=== PATIENT | female | born 1955 | race Caucasian/White ===

== ENCOUNTER 2018-04-29 08:04 | Inpatient (IN) ==
[2018-04-29] MEDS ORDERED: Chlorhexidine 4% Topical 120 APPLIC/120 ML Bottle TOPICAL SCH (08:30)
[2018-04-29] MEDS ORDERED: Chlorhexidine Gluconate 2% 1 Pack (2 Cloths) TOPICAL ONE (08:30)
[2018-04-29] MEDS ORDERED: Metoprolol Tartrate 25 MG Tablet PO ONE (08:30)
[2018-04-29] MEDS ORDERED: Sodium Chlor 0.9% Inj 500 ML IV.CONT ONE (08:30)
[2018-04-29] MEDS ORDERED: TRANEXAMIC ACID IV.SIG SCH ×2 (09:00→12:00)
[2018-04-29] MEDS ORDERED: SODIUM CHLOR 0.9% IV.SIG SCH ×2 (09:00→12:00)
[2018-04-29] MEDS ORDERED: Sodium Chlor 0.9% Inj 40 ML, Bupivacaine Liposo PF 1.3% Inj 20 ML P-ARTICULR SCH ×2 (09:00)
[2018-04-29] MEDS ORDERED: fentaNYL Citrate Inj 100 MCG/2 ML Ampul ONE (09:56)
[2018-04-29] MEDS ORDERED: Propofol Inj 500 MG/50 ML Vial ONE (09:56)
[2018-04-29] MEDS ORDERED: Famotidine PF Inj 20 MG/2 ML Vial ONE (09:57)
[2018-04-29] MEDS ORDERED: Ketamine Inj 50 MG/5 ML Syringe IV.PUSH ONE (10:05)
[2018-04-29] MEDS ORDERED: ceFAZolin 2 GM Premix Inj 2 GM/50 ML PIGGYBACK IV.SIG ONE (10:15)
[2018-04-29] MEDS ORDERED: Acetaminophen 500 MG Tablet PO PRN (10:26)
[2018-04-29] MEDS ORDERED: Pantoprazole Sodium 20 MG DR Tablet PO PRN (12:00)
--- NOTE | 2018-04-29 12:30 | P.OP ---
- Preoperative Diagnosis (1) Primary osteoarthritis of left hip - Postoperative Diagnosis (1) Primary osteoarthritis of left hip Date of procedure: 04/29/18 Procedure: Left total hip arthroplasty using [place] prosthesis. Anesthesia: local (Exparel), spinal Surgeon: Timmy Cat MD Quality Consultant: CRISTINA Johnson Estimated blood loss (mL): 350 Pathology: none sent Operation and Findings: Indications and Findings: This 62-year-old woman has a one year history of progressive left hip pain that has gotten to the point where she has an ambulation tolerance of about 10 minutes. She has stiffness in the joint with difficulty bearing full weight, groin pain, difficulty standing from a seated position and vice versa, difficulty ascending and descending stairs. She has not responded to conservative measures including anti-inflammatory agents, analgesics, intra-articular corticosteroids, physical therapy and ambulatory aids. Physical findings showed severe limitation of motion with tenderness on motion in the left hip. Radiographic findings showed loss of articular cartilage to [id number] with femoral head and acetabular osteophytes and subchondral cysts. Operative findings: There is severe osteoarthritis in the left hip with osteophytes and subchondral sclerosis. There was deformity of the femoral head with loss of arcuate articular cartilage to [id number]. Implants: The acetabular component was a 50 mm outer diameter Trident II cluster shell with a 36 mm inner diameter, 0 degree, X3 polyethylene liner. The femoral component was an Accolade II size 4 x 132 degrees. The femoral head was Biolox Delta size 36 mm outer diameter with -5 mm offset. The patient was brought to the clean air operating suite and a spinal anesthetic was administered. The patient was positioned into a lateral position with the operative hip up on a [employer] lateral positioner. The hip and lower extremity were prepped with alcohol, Hibiclens and ChloraPrep and draped in the usual manner with the hip draped free. Patient received prophylactic antibiotics preoperatively. The patient also received tranexamic acid preoperatively. An appropriate timeout procedure was carried out. An incision was made from the midportion of the greater trochanter proximally and posteriorly paralleling the fibers of the gluteus mike. The incision was deepened through subcutaneous tissues down to the fascia meaghan and gluteus fascia. The gluteus fascia was then split longitudinally in line with its fibers up to the upper portion of the fascia meaghan. With wound towels in place, the Charnley retractor was inserted. The sciatic nerve was identified and protected throughout the procedure. Dissection was then carried down to the interval between the gluteus minimus and the piriformis. A retractor was inserted. The piriformis and obturator conjoined tendon was released from the greater trochanter and reflected off the capsule. A capsulotomy was made longitudinally along the femoral neck to the base of the femoral neck and then curved distally along the posterior aspect of the greater trochanter. The hip was internally rotated. Further release of the external rotators was carried out exposing the hip. The hip was dislocated. The femoral neck was transected at the appropriate level using the oscillating saw placement of appropriate retractors. The femoral head was removed. Preparation of the femur was initiated with a box osteotome followed by a curet to identify the medullary canal. Broaching was then initiated with the size 0 broach and went in 1 size increments up to size 4. The broach handle was removed. The femoral neck was then trimmed with a calcar planar. Attention was then directed to the acetabulum. Soft tissues were debrided from the acetabulum. Retractors were placed about the acetabulum. Reaming was then initiated with the 45 millimeter reamer and went in 1-2 mm increments up to the 50 millimeter diameter reamer. A trial reduction with the 50 millimeter trial prosthesis was carried out. When this was deemed to be appropriate, the trial prosthesis was removed. The acetabulum was irrigated and cleaned. The actual prosthesis as noted above was impacted into place and seated appropriately. Drill holes were made and sounded. Appropriate sized screws were inserted to stabilize the acetabulum further. The liner as noted above was inserted into the acetabular shell and impacted into place. Osteophytes were trimmed from the acetabulum. Local anesthetic was administered throughout the area of the acetabulum and anterior aspect of the femur. The trial neck was placed on the broach for the above-noted prosthesis. The femoral head trial was placed onto the femoral neck . A trial reduction was carried out. Adjustment was made as needed. The stability, leg length and motion were excellent. There was no pistoning. The trial prosthesis was removed. The broach was removed. The femoral component was impacted into the medullary canal of the femur after irrigation and suctioning. When this was appropriately seated a trial reduction was again carried out with the trial prosthesis. There was no pistoning. The leg length was appropriate. The stability and motion were excellent. The trial prosthesis was then removed. After cleaning and drying the trunion of the femoral component, the above-noted femoral head was impacted onto the trunnion. The hip was reduced. The stability and mobility were again checked along with leg lengths as noted above. The hip was positioned appropriately and closure commenced after the remainder of the local anesthetic was injected throughout the hip. The external rotators and capsule were repaired with #1 Vicryl interrupted transosseous sutures with a Krakw technique to reattach the external rotators and capsule to the posterior aspect of the greater trochanter. The capsule itself on the superior aspect was closed with #1 Vicryl interrupted [id number] sutures. The sciatic nerve was inspected. The fascia meaghan and gluteus fascia were repaired with #1 Vicryl interrupted [id number] sutures. The subcutaneous tissues were closed with 2-0 Vicryl interrupted simple sutures with buried knots. The skin was closed with a continuous subcuticular closure of 4-0 Monocryl. The wound was then approximated with Dermabond Prineo. A silver impregnated dressing was applied to the hip. A knee immobilizer was applied to the leg. The patient was transferred from the operating room to the recovery room in satisfactory condition having tolerated the procedure well. Counts are correct. Specimens: None. Estimated blood loss: 350
[2018-04-29] MEDS ORDERED: Tranexamic Acid Inj 0 MG in Sodium Chlor 0.9% Inj 100 ML IV.SIG ONE (12:32)
[2018-04-29] MEDS ORDERED: Post-op Orders (for Pharmacy) OTHER STA (12:32)
[2018-04-29] MEDS ORDERED: Acetaminophen 325 MG Tablet PO PRN (12:32)
[2018-04-29] MEDS ORDERED: Zolpidem Tartrate 5 MG Tablet PO PRN (12:32)
[2018-04-29] MEDS ORDERED: Aluminum/Magnesium/Simethacone Susp 30 ML UDC PO PRN (12:32)
[2018-04-29] MEDS ORDERED: Morphine Inj 4 MG/ML Vial IV.PUSH PRN (12:32)
[2018-04-29] MEDS ORDERED: Bisacodyl 10 MG Supp RECTAL PRN (12:32)
--- NOTE | 2018-04-29 12:32 | P.DCO ---
- Physical Therapy Physical Therapy: Gait training Hip: Total hip, Protocol: Left, Posterior hip precautions, Progress to weight bearing Canvas Knee Splint: When in bed with 2 pillows between thighs Left Lower Extremity Weight Bearing: Weight bearing as tolerated Left Lower Extremity Range of Motion: Active ROM - Nursing Nursing: Dressing changes Dressing changes: Daily dressing change, Coverderm/Primapore Additional instructions: Do not remove Dermabond Prineo (the tape that is directly on the wound). Leave the Optifoam dressing in place for 7 days. After this, daily dressing changes will be done taking care to avoid injuring or removing the Dermabond Prineo. - Certification Need for Home Health services: I have seen patient Yuli Laura on 04/29/18. My clinical findings support the need for the requested home health care services because: Need for Home Health Services: Limited mobility due to disease progression, Limited ability to care for self, High risk of falls Homebound Certification: I certify that my clinical findings support that this patient is homebound because: Homebound Certification: Post-op weakness, Unsteady gait/balance, Unsafe to leave home unassisted
[2018-04-29] MEDS ORDERED: *morphine SULFATE 4 MG/ML PERIprocedure ONLY ONE ×3 (13:18→14:08)
--- NOTE | 2018-04-29 14:20 | XR ---
EXAM DATE: 04/29/2018 1:52 PM EST AGE/SEX: 62 years / Female INDICATIONS: Aspiration. Post op left hip surgery. CLINICAL DATA: This is the patient's initial encounter. Patient reports that signs and symptoms have been present for 1 day and indicates a pain score of Nonresponsive. MEDICAL/SURGICAL HISTORY: Non-responsive. . COMPARISON: POI, XR SPINE LUMBAR W/ FLEX AND EXT (MIN 4 VIEWS), 02/28/2017. . FINDINGS: Minimal bibasilar airspace disease. The cardiomediastinal contours are unremarkable. Osseous struct ures are intact. CONCLUSION: 1. Minimal bibasilar airspace disease, likely atelectasis. 2. No significant airspace opacities to suggest aspiration as questioned. Electronically signed by: Korey Wells MD 04/29/2018 2:19 PM EST
[2018-04-29] MEDS: Ketorolac Inj 30 MG/ML (IVP) Vial IV.PUSH SCH ×2 (14:48→20:58)
--- NOTE | 2018-04-29 14:50 | XR ---
EXAM DATE: 04/29/2018 1:55 PM EST AGE/SEX: 62 years / Female INDICATIONS: Post op left hip surgery. CLINICAL DATA: This is the patient's initial encounter. Patient reports that signs and symptoms have been present for 1 day and indicates a pain score of Nonresponsive. MEDICAL/SURGICAL HISTORY: Non-responsive. Non-responsive. COMPARISON: POI, XR HIP W/ AP PELVIS, BILATERAL, 04/12/2017. . FINDINGS: AP view of the pelvis with single lateral view of the left hip joint demonstrates a left total hip ar throplasty hardware in place. Acetabular component contains a single cancellous screw and the femoral component is noncemented. There is air in the adjacent soft tissues. No unexpected radiopaque foreig n body is identified. The remaining visualized pelvic structures demonstrate no acute finding. There is osteoarthritis at the right hip joint. CONCLUSION: Expected changes following recent left total hip arthroplasty. No acute finding is identified. Electronically signed by: Reed Moseley MD 04/29/2018 2:48 PM EST
--- NOTE | 2018-04-29 15:07 | P.CONIM ---
History of Present Illness Service: [facility] Consult date: 04/29/18 Requesting Physician: Timmy Cat Reason for Consult: post op medical management Primary Care Provider: Rowdy Fitzgerald DO Chief Complaint: left hip osteoarthritis s/p left total hip arthroplasty History of Present Illness: Patient is a very pleasant 62 year old female with a past medical history significant for osteoarthritis left hip, borderline diabetes that is diet controlled, hiatal hernia and c-diff. She is status post left total hip arthroplasty. Patient reports a long standing history of osteoarthritis that continued to progressively worsen despite conservative therapy and was affecting her activities of daily living. Patient is seen post operatively. She reports a sore throat and states she vomited downstairs in OR. A chest x-ray was completed and shows no significant airspace opacities to suggest aspiration. Patient denies nausea at present time. Mild discomfort to left hip. Ice packs are in place. Patients pre op lab work from was reviewed and grossly unremarkable. She denies shortness of breath, chest discomfort, lower extremity pain/edema, fevers or chills. Her post op vital signs were reviewed and she is hemodynamically stable. Hospitalist team will follow along. Review of Systems ROS Unobtainable: other (except as documented all other systems have been reviewed and negative) PMFSH History History Provided By: Patient Medical History Medical History Arthritis (Acute) Borderline diabetes (Acute) H/O Clostridium difficile infection (Acute) Hiatal hernia (Acute) History of anesthesia reaction (Acute) Surgical History Surgical History H/O abdominoplasty (Acute) H/O inguinal hernia repair (Acute) History of bunionectomy (Acute) Family History Family History Other Diabetes Social History Social History Substance History: No History of Abuse Second Hand Smoke Exposure: No Smoking Status: Never smoker How Often Do You Have a Drink Containing Alcohol: Monthly or less Recent Travel in [facility] within the Last 8 Weeks: No Recent Out of Country Travel within the Last 8 Weeks: No Medications and Allergies Allergies Allergy/AdvReac Type Severity Reaction Status Date / Time amoxicillin Allergy Severe Hives Verified 04/29/18 08:47 clindamycin AdvReac Severe develops Verified 04/29/18 08:47 C-DIFF Home Medications Medication Instructions Recorded Confirmed Type Bifidobacterium infantis [Align] 1 cap PO DAILY 04/14/18 04/29/18 History acetaminophen [Acetaminophen Extra 1,000 mg PO Q6H PRN 04/14/18 04/29/18 History Strength] calcium carbonate [Calcium 600] 600 mg PO DAILY 04/14/18 04/29/18 History doxylamine succinate [Sleep Aid 25 mg PO HS 04/14/18 04/29/18 History (doxylamine)] hydrocodone-acetaminophen 1 tab PO Q4-6H PRN 04/14/18 04/29/18 History multivit,Ca,hmic-AS-dvsczp-lut 1 tab PO DAILY 04/14/18 04/29/18 History [Complete Multi] naproxen sodium [Aleve] 220 mg PO BID PRN 04/14/18 04/29/18 History omeprazole magnesium [Prilosec OTC] 20 mg PO DAILY PRN 04/14/18 04/29/18 History Active Medications: Active Medications Acetaminophen (Tylenol) 1,000 mg PO Q6H PRN PRN Reason: PAIN SCALE 1-10 Acetaminophen (Tylenol) 650 mg PO Q6H PRN PRN Reason: Pain Less Than 3 On Scale Hydrocodone Bitart/Acetaminophen ([place] 7.5/325) 1 tab PO Q4H PRN PRN Reason: PAIN SCALE 4 TO 6 MODERATE Hydrocodone Bitart/Acetaminophen ([place] 7.5/325) 2 tab PO Q6H PRN PRN Reason: PAIN SCALE 7 TO 10 SEVERE Al Hydrox/Mg Hydrox/Simethicone (Mag-Al Plus Susp Liq) 30 ml PO Q6H PRN PRN Reason: INDIGESTION Al Hydroxide/Mg Hydroxide (Milk Of Magnesia Liq) 30 ml PO BID PRN PRN Reason: Mild Constipation Aspirin (Aspirin Chew) 81 mg PO BID SWAPNA Bisacodyl (Dulcolax Supp) 10 mg RECTAL DAILY PRN PRN Reason: SEVERE CONSITIPATION Calcium Carbonate (Oscal) 500 mg PO DAILY [facility] Chlorhexidine Gluconate (Hibiclens 4% Topical) 1 applicatio TOPICAL ONCE SWAPNA Stop: 05/03/18 08:29 Last Admin: 04/29/18 08:40 Dose: 1 applicatio Diphenhydramine HCl (Benadryl) 25 mg PO Q6H PRN PRN Reason: ITCHING Lactated Ringer's (Lr 1000 Ml Inj) 1,000 mls @ 30 mls/hr IV.CONT .Q24H ONE Stop: 04/30/18 08:29 Last Admin: 04/29/18 08:45 Dose: 30 mls/hr Sodium Chloride (Ns Inj) 500 mls @ 30 mls/hr IV.CONT .[id number] ONE Stop: 04/30/18 01:09 Last Admin: 04/29/18 09:10 Dose: Not Given Tranexamic Acid 712 mg/ Sodium (Chloride) 107.12 mls @ 200 mls/hr IV.SIG ONCE SWAPNA Stop: 04/30/18 08:59 Last Infusion: 04/29/18 11:16 Dose: Infused Tranexamic Acid 712 mg/ Sodium (Chloride) 107.12 mls @ 200 mls/hr IV.SIG ONCE SWAPNA Stop: 04/29/18 18:00 Cefazolin Sodium/Dextrose (Ancef 1 Gm Premix Inj) 1 gm in 50 mls @ 100 mls/hr IV.SIG Q6H SWAPNA Stop: 04/30/18 04:29 Lactated Ringer's (Lr 1000 Ml Inj) 1,000 mls @ 80 mls/hr IV.CONT .[id number] [facility] Last Admin: 04/29/18 14:48 Dose: 80 mls/hr Ketorolac Tromethamine (Toradol Inj) 15 mg IV.PUSH Q6H [facility] Stop: 05/01/18 08:01 Last Admin: 04/29/18 14:48 Dose: 15 mg Lactulose (Lactulose Liq) 30 ml PO DAILY PRN PRN Reason: SEVERE CONSITIPATION Miscellaneous Information (Misc Nursing Information) 1 each OTHER UNSCH PRN PRN Reason: SEE LABEL COMMENTS Stop: 04/30/18 12:49 Morphine Sulfate (Morphine Inj) 2 mg IV.PUSH Q3H PRN PRN Reason: BREAKTHROUGH PAIN Ondansetron HCl (Zofran Odt) 4 mg PO Q6H PRN PRN Reason: NAUSEA OR VOMITING Pantoprazole Sodium (Protonix) 20 mg PO DAILY PRN PRN Reason: GERD Pt Own Med: ( Doxylamine Succinate -Sleep Aid) 0 each PO HS SWAPNA Senna/Docusate Sodium (Merlene-Colace) 1 tab PO BID SWAPNA Sennosides (Senokot) 17.2 mg PO BID PRN PRN Reason: Moderate Constipation Sodium Chloride (Ns Flush) 2 ml IV.FLUSH BID SAWPNA Sodium Chloride (Ns Flush) 2 ml IV.FLUSH PRN PRN PRN Reason: FLUSH AFTER USING IV ACCESS Zolpidem Tartrate (Ambien) 5 mg PO HS PRN PRN Reason: INSOMNIA Physical Exam Vital signs: Last Vital Signs Temp 99.2 F 04/29/18 08:30 Pulse 85 04/29/18 08:30 Resp 20 04/29/18 08:30 BP 141/83 H 04/29/18 08:30 Pulse Ox 98 04/29/18 08:30 Intake & Output 04/27/18 04/28/18 04/29/18 04/30/18 06:59 06:59 06:59 06:59 Intake Total 1700.12 / 1700.12 Output Total 350 / 350 Balance 1350.12 / 1350.12 Weight 71.2 kg Constitutional no acute distress and cooperative Routine HEENT Exam Head: Present normocephalic and atraumatic Eye: Present EOMI, PERRL and normal accommodation ENT: Present mucous membranes moist and dentition normal Routine Neck Exam Present supple, full ROM and trachea midline; Absent JVD Routine Chest/Breast/Axilla Exam Chest wall: Absent tenderness Routine Respiratory Exam Present CTA bilaterally; Absent accessory muscle use, rhonchi, stridor and wheezes Routine Cardiovascular Exam Present RRR, S1 and S2; Absent murmur Routine Abdominal Exam Present soft; Absent tenderness and distended Routine Extremities Exam Present pulses intact; Absent cyanosis Detailed Lower Extremity Exam Hip: left: tenderness (s/p arthroplasty), left: wound hip (s/p arthroplasty) and left: decreased ROM (s/p arthroplasty) and right: normal inspection and right: full ROM Routine Neurological Exam Present alert, oriented X3 and CN II-XII intact Routine Psychiatric Exam Present normal affect, cooperative, good insight and good judgment Results Imaging Impressions Hip X-Ray 04/29/18 10:23 CONCLUSION: Expected changes following recent left total hip arthroplasty. No acute finding is identified. Chest X-Ray 04/29/18 12:53 CONCLUSION: 1. Minimal bibasilar airspace disease, likely atelectasis. 2. No significant airspace opacities to suggest aspiration as questioned. ABG Impressions Hip X-Ray 04/29/18 10:23 CONCLUSION: Expected changes following recent left total hip arthroplasty. No acute finding is identified. Chest X-Ray 04/29/18 12:53 CONCLUSION: 1. Minimal bibasilar airspace disease, likely atelectasis. 2. No significant airspace opacities to suggest aspiration as questioned. Assessment and Plan (1) Status post total replacement of left hip: Code(s): Z96.642 - Presence of left artificial hip joint Status: Acute Plan Patient is a very pleasant 62 year old female with a past medical history significant for borderline diabetes diet controlled, hiatal hernia and c -diff. She presented to the hospital today to undergo an elective left total hip arthroplasty secondary to her history of osteoarthritis of the left hip that continued to worsen despite conservative treatment and was interfering with her activities of daily living, including gait. Left hip severe osteoarthritis status post left total hip arthroplasty 04/29/18 -primary mgmt per Director [employer] Dr Cat -post op abx, IV fluids as ordered per primary team -pain meds PRN -PT eval/treat Nausea with vomiting in OR, r/o aspiration -CXR shows no significant airspace opacities to suggest aspiration and minimal bibasilar airspace disease -Zofran PRN nausea -repeat lab work in am Sore throat -lozenges PRN Borderline diabetes, diet controlled -fasting blood glucose 88 on 04/14/18 -continue outpatient follow up with PCP Hiatal hernia, chronic and stable Hx of c-diff MDM: self Code: Full GI ppx: PPI, PO intake DVT ppx: ASA 81 mg PO BID per Ortho, SCD's
[2018-04-29] MEDS: ceFAZolin 1 GM Premix Inj 1 GM/50 ML PIGGYBACK IV.SIG SCH ×2 (15:41→21:04)
[2018-04-29] MEDS: Senna/Docusate Sodium 8.6/50 MG Tablet PO SCH (20:59)
[2018-04-29] MEDS ORDERED: DOXYLAMINE SUCCINATE PO SCH (21:00)
[2018-04-29] MEDS ORDERED: [UNRECOGNIZED DRUG - OTHER] PO SCH (21:00)
[2018-04-30] MEDS: Ketorolac Inj 30 MG/ML (IVP) Vial IV.PUSH SCH ×4 (01:33→21:06)
[2018-04-30] MEDS: Benzocaine/Menthol 15 MG/3.6 MG SF Lozenge BUCCAL PRN ×2 (01:34→16:06)
[2018-04-30 06:13] LABS: Hemoglobin 9.7 gm/dL (11.6-15.3)
[2018-04-30] MEDS: ceFAZolin 1 GM Premix Inj 1 GM/50 ML PIGGYBACK IV.SIG SCH (06:27)
--- NOTE | 2018-04-30 07:40 | P.PNOP ---
Subjective Interval history: Postop day #1 She is doing well. She has minimal complaints related to the hip at this time. She was up to the bathroom without any difficulty. She is somewhat apprehensive, however. Physical therapy reports that the ambulation distance was 4-1/2 feet. Physical Exam Vital signs: Vital Signs 04/29/18 08:30 04/29/18 12:52 04/29/18 13:00 Temperature 99.2 F 97.4 F L Pulse Rate 85 85 83 Respiratory Rate 20 15 16 Blood Pressure 141/83 H 111/55 L 115/59 L Pulse Oximetry 98 98 100 04/29/18 13:15 04/29/18 13:30 04/29/18 13:45 Temperature Pulse Rate 83 81 91 H Respiratory Rate 15 17 16 Blood Pressure 119/64 116/58 L 113/63 Pulse Oximetry 100 100 100 04/29/18 14:00 04/29/18 14:30 04/29/18 14:45 Temperature 97.8 F Pulse Rate 89 91 H 91 H Respiratory Rate 15 17 17 Blood Pressure 111/59 L 98/56 L 96/53 L Pulse Oximetry 100 100 100 04/29/18 15:41 04/29/18 16:00 04/29/18 16:20 Temperature 97.2 F L Pulse Rate 83 Respiratory Rate 18 18 Blood Pressure 94/52 L Pulse Oximetry 98 04/29/18 18:00 04/29/18 19:50 04/29/18 23:30 Temperature 97.2 F L 97.3 F L Pulse Rate 88 97 H 98 H Respiratory Rate 18 18 Blood Pressure 113/58 L 113/65 116/72 Pulse Oximetry 98 98 04/30/18 03:50 Temperature 97.6 F Pulse Rate 91 H Respiratory Rate 18 Blood Pressure 98/61 L Pulse Oximetry 94 L Intake & Output 04/29/18 04/30/18 04/30/18 18:59 06:59 18:59 Intake Total 1750.12 / 1750.12 470 / 470 Output Total 350 / 350 300 / 300 Balance 1400.12 / 1400.12 170 / 170 Weight 71.2 kg 79.2 kg Intake: IV 207.12 / 207.12 50 / 50 Cyklokapron Inj 712 MG In NS 107.12 / 107.12 Inj 100 ML @ 200 mls/hr IV.SIG ONCE SWAPNA Rx#:[id number] Ancef 1 GM Premix Inj 1 gm In 50 / 50 50 / 50 50 ml @ 100 mls/hr IV.SIG Q6H [facility] Rx#:[id number] Ancef 2 GM Premix Inj 2 gm In 50 / 50 50 ml @ 0 mls/hr IV.SIG .STK- MED ONE Rx#:[id number] Oral 420 / 420 Anesthesia Amount 1543 / 1543 Output: Urine 300 / 300 Estimated Blood Loss 350 / 350 Other: # Voids 1 Date of Last Bowel Movement 04/28/18 # Bowel Movements 0 Weight On Admission 71.2 kg Narrative: She is resting comfortably, supine in bed. The dressing is dry and intact. Her neurovascular status is intact. Results - Labs CBC & Chem 7: 04/30/18 05:30 Laboratory Results - last 24 hr 04/29/18 04/30/18 08:38 05:30 Hgb 9.7 L Hct 29.0 L Blood Type A Negative Blood Type Recheck Required Antibody Screen Negative - Imaging Impressions Hip X-Ray 04/29/18 10:23 CONCLUSION: Expected changes following recent left total hip arthroplasty. No acute finding is identified. Chest X-Ray 04/29/18 12:53 CONCLUSION: 1. Minimal bibasilar airspace disease, likely atelectasis. 2. No significant airspace opacities to suggest aspiration as questioned. - Procedures Left total hip arthroplasty using [place] prosthesis on 04/29/2018. Assessment and Plan - Ortho Post Op Day # 1 - Problem List (1) Status post total replacement of left hip Code(s): Z96.642 - Presence of left artificial hip joint Status: Acute Onset Date: ~04/29/18 - Assessment and Plan Condition: Good. Orthopedically stable. DVT prophylaxis: TEDs, aspirin, sequentials. Discharge plans: Home with home health care. An appointment was scheduled through the office. Prescriptions: [place] 7.5/325; Patient is having significant pain caused by total hip arthroplasty which will last more than 3 days. Trial of Tylenol has not helped. I believe that it is medically necessary to treat patients pain because it is affecting patients ability to participate in postoperative rehabilitation and perform activities of daily living in a comfortable and efficient manner. I have checked the [employer] database prior to completing the prescription.
--- NOTE | 2018-04-30 08:18 | P.DS ---
Date of admission: 04/29/18 08:04 Primary care physician: Rowdy Fitzgerald DO Attending physician on discharge: Timmy Cat Anticipated date of discharge: 04/30/18 Brief History from admission: This 62-year-old woman has had long-standing pain in her left hip secondary to osteoarthritis that has been nonresponsive to conservative measures. These include anti-inflammatory agents, analgesics, activity modification, ambulatory aids. Her physical findings show limited range of motion in the hip. She had an antalgic gait. X-rays showed loss of articular cartilage to [id number] with subchondral sclerosis, cystic change and osteophytes. DS: Diagnosis - Discharge Diagnosis (1) Status post total replacement of left hip Status: Acute Diagnosis: Principal (2) Primary osteoarthritis of left hip Status: Chronic Diagnosis: Principal DS: Medications - Discharge Medications Prescriptions: hydrocodone-acetaminophen 1 tab PO Q4H PRN 7 Days #42 tab PRN Reason: Pain, Severe DS: Summary Hospital Course: The patient was admitted as noted above. The above noted operative procedure was carried out that day. Preoperatively prophylactic antibiotics were administered Ancef according to protocol. These were continued postoperatively. The patient also received tranexamic acid to help with hemostasis according to protocol. In the postanesthesia care unit mechanical methods of DVT prophylaxis in the form of TERESO stockings and sequentials were initiated. Physical therapy was initiated on the day of surgery. On postoperative day #1 physical therapy continued. DVT prophylaxis with aspirin was initiated at this time. The patient continued physical therapy throughout the hospitalization. The distance walked and range of motion improved throughout the hospitalization. The patient was discharged on postoperative day 2 with the disposition being to home with home health care. An appointment for follow-up was made prior to admission. - Time Spent with Patient Total time spent providing and/or coordinating discharge services: Less than 30 minutes - Quality: VTE Deep Vein Thrombosis/Pulmonary Embolism Present on Admission: No Exam Vital signs: Vital Signs 04/29/18 08:30 04/29/18 12:52 04/29/18 13:00 Temperature 99.2 F 97.4 F L Pulse Rate 85 85 83 Respiratory Rate 20 15 16 Blood Pressure 141/83 H 111/55 L 115/59 L Pulse Oximetry 98 98 100 04/29/18 13:15 04/29/18 13:30 04/29/18 13:45 Temperature Pulse Rate 83 81 91 H Respiratory Rate 15 17 16 Blood Pressure 119/64 116/58 L 113/63 Pulse Oximetry 100 100 100 04/29/18 14:00 04/29/18 14:30 04/29/18 14:45 Temperature 97.8 F Pulse Rate 89 91 H 91 H Respiratory Rate 15 17 17 Blood Pressure 111/59 L 98/56 L 96/53 L Pulse Oximetry 100 100 100 04/29/18 15:41 04/29/18 16:00 04/29/18 16:20 Temperature 97.2 F L Pulse Rate 83 Respiratory Rate 18 18 Blood Pressure 94/52 L Pulse Oximetry 98 04/29/18 18:00 04/29/18 19:50 04/29/18 23:30 Temperature 97.2 F L 97.3 F L Pulse Rate 88 97 H 98 H Respiratory Rate 18 18 Blood Pressure 113/58 L 113/65 116/72 Pulse Oximetry 98 98 04/30/18 03:50 Temperature 97.6 F Pulse Rate 91 H Respiratory Rate 18 Blood Pressure 98/61 L Pulse Oximetry 94 L Intake & Output 04/29/18 04/30/18 04/30/18 18:59 06:59 18:59 Intake Total 1750.12 / 1750.12 470 / 470 Output Total 350 / 350 300 / 300 Balance 1400.12 / 1400.12 170 / 170 Weight 71.2 kg 79.2 kg Intake: IV 207.12 / 207.12 50 / 50 Cyklokapron Inj 712 MG In NS 107.12 / 107.12 Inj 100 ML @ 200 mls/hr IV.SIG ONCE SWAPNA Rx#:[id number] Ancef 1 GM Premix Inj 1 gm In 50 / 50 50 / 50 50 ml @ 100 mls/hr IV.SIG Q6H [facility] Rx#:[id number] Ancef 2 GM Premix Inj 2 gm In 50 / 50 50 ml @ 0 mls/hr IV.SIG .STK- MED ONE Rx#:[id number] Oral 420 / 420 Anesthesia Amount 1543 / 1543 Output: Urine 300 / 300 Estimated Blood Loss 350 / 350 Other: # Voids 1 Date of Last Bowel Movement 04/28/18 # Bowel Movements 0 Weight On Admission 71.2 kg Narrative: She is resting comfortably, supine in bed. The dressing is dry and intact. Her neurovascular status is intact. Results Procedures completed during hospitalization: Left total hip arthroplasty using [place] prosthesis on 04/29/2018. Labs on day of discharge: Labs from last 24 hours 04/30/18 04/29/18 05:30 08:38 Hgb 9.7 L Hct 29.0 L Blood Type A Negative Blood Type Recheck Required Antibody Screen Negative - Impressions ITS Impressions Hip X-Ray 04/29/18 10:23 CONCLUSION: Expected changes following recent left total hip arthroplasty. No acute finding is identified. Chest X-Ray 04/29/18 12:53 CONCLUSION: 1. Minimal bibasilar airspace disease, likely atelectasis. 2. No significant airspace opacities to suggest aspiration as questioned. Discharge Plan - Discharge Disposition Patient Disposition: /Home Health Service - Discharge Condition Condition: Stable - Discharge Order Discharge Orders: Discharge Order (Routine); Ordered 04/30/18 Ordered By: Timmy Cat - Discharge Details Anticipated Discharge Date: 05/01/18 - Physicians Team Primary Care Provider: Rowdy Fitzgerald Attending Provider: Timmy Cat Other Providers: Arnoldo Weller MD ; [facility] - Rxs /Orders / Referrals /Forms Prescriptions: New aspirin 81 mg Tablet,Chewable 81 mg PO BID RF: 0 hydrocodone-acetaminophen 7.5-325 mg Tablet 1 tab PO Q4H PRN (Reason: Pain, Severe) 7 Days Qty: 42 RF: 0 Continue acetaminophen [Acetaminophen Extra Strength] 500 mg Tablet 1,000 mg PO Q6H PRN (Reason: Pain) Bifidobacterium infantis [Align] 10.5 mg (10 million cell) Tablet,Chewable 1 cap PO DAILY calcium carbonate [Calcium 600] 600 mg calcium (1,500 mg) Tablet 600 mg PO DAILY doxylamine succinate [Sleep Aid (doxylamine)] 25 mg Tablet 25 mg PO HS multivit,Ca,ugbj-EQ-ofmtxt-lut [Complete Multi] [id number] mg-mcg-mcg- mcg Tablet 1 tab PO DAILY naproxen sodium [Aleve] 220 mg Capsule 220 mg PO BID PRN (Reason: Pain) omeprazole magnesium [Prilosec OTC] 20 mg Tablet,Delayed Release (Dr/Ec) 20 mg PO DAILY PRN (Reason: gerd) Discontinued hydrocodone-acetaminophen 5-325 mg Tablet 1 tab PO Q4-6H PRN (Reason: Pain) Referrals: Timmy Cat MD [Physician] - See Instructions Rowdy Fitzgerald DO [Primary Care Provider] - See Instructions - Discharge Instructions Patient Printed Instructions: Hydrocodone/Acetaminophen (By mouth), Aspirin ( By mouth), Total Hip Replacement (DC)
[2018-04-30] MEDS: Calcium Carbonate 500 MG Tablet PO SCH (08:34)
[2018-04-30] MEDS: Senna/Docusate Sodium 8.6/50 MG Tablet PO SCH ×2 (08:34→21:08)
[2018-04-30] MEDS ORDERED: BIFIDOBACTERIUM INFANTIS PO SCH (09:00)
[2018-04-30] MEDS ORDERED: [UNRECOGNIZED DRUG - OTHER] PO SCH (09:00)
--- NOTE | 2018-04-30 14:27 | P.PNIM ---
Subjective Interval history: Follow up status post left hip arthroplasty, nausea, sore throat Patient is resting in bed. She states she just finished working out with physical therapy. She continues to experience throat soreness and some hoarsenss but states that this has improved since yesterday. No cough, fever or chills overnight. Patient reports dizziness when out of bed. Physical Exam Vital signs: Last Vital Signs Temp 97.8 F 04/30/18 12:00 Pulse 92 H 04/30/18 12:00 Resp 16 04/30/18 12:00 BP 125/60 04/30/18 12:00 Pulse Ox 97 04/30/18 12:00 Intake & Output 04/28/18 04/29/18 04/30/18 05/01/18 06:59 06:59 06:59 06:59 Intake Total 3220.12 / 3220.12 50 / 50 Output Total 650 / 650 Balance 2570.12 / 2570.12 50 / 50 Weight 79.2 kg Narrative: GENERAL: no acute distress, well developed, well nourished SKIN: Warm and dry. HEAD: Normocephalic, atraumatic EYES: No scleral icterus. No injection or drainage. NECK: Supple, trachea midline. No JVD or lymphadenopathy. CARDIOVASCULAR: Regular rate and rhythm without murmurs, gallops, or rubs. RESPIRATORY: Breath sounds equal bilaterally. No accessory muscle use. GASTROINTESTINAL: Abdomen soft, non-tender, nondistended. MUSCULOSKELETAL: No cyanosis. Left hip decreased ROM d/t arthroplasty. Left hip dressing clean, dry and intact. Results Labs CBC & Chem 7: 04/30/18 05:30 Imaging Imaging: Impressions Hip X-Ray 04/29/18 10:23 CONCLUSION: Expected changes following recent left total hip arthroplasty. No acute finding is identified. Procedures Procedures: Left total hip arthroplasty using [place] prosthesis on 04/29/2018. Assessment and Plan Plan Patient is a very pleasant 62 year old female with a past medical history significant for borderline diabetes diet controlled, hiatal hernia and c -diff. She presented to the hospital today to undergo an elective left total hip arthroplasty secondary to her history of osteoarthritis of the left hip that continued to worsen despite conservative treatment and was interfering with her activities of daily living, including gait. Left hip severe osteoarthritis status post left total hip arthroplasty 04/30/18 -primary mgmt per Regulator Operator Dr Cat -post op abx, IV fluids as ordered per primary team -pain meds PRN -PT eval/treat Nausea - evaluated 04/30/18, intermittent and improving -CXR shows no significant airspace opacities to suggest aspiration and minimal bibasilar airspace disease -Zofran PRN nausea Sore throat/ hoarseness - evaluated 04/30/18, improving -lozenges PRN Borderline diabetes, diet controlled - evaluated 04/30/18 -fasting blood glucose 88 on 04/14/18 -continue outpatient follow up with PCP Hiatal hernia, chronic and stable Hx of c-diff MDM: self Code: Full GI ppx: PPI, PO intake DVT ppx: ASA 81 mg PO BID per Ortho, SCD's Progress Note: Quality VTE Deep Vein Thrombosis/Pulmonary Embolism Present on Admission: No
[2018-05-01] MEDS: Ketorolac Inj 30 MG/ML (IVP) Vial IV.PUSH SCH ×2 (03:03→08:28)
[2018-05-01 05:10] VITALS: RESP 18
[2018-05-01 06:33] LABS: Hematocrit 25.6 % (35.0-46.0); Hemoglobin 8.8 gm/dL (11.6-15.3)
--- NOTE | 2018-05-01 07:41 | P.PNOP ---
Subjective Interval history: Postop day #2 She is doing fairly well today. She has much less pain and is much less apprehensive. Physical therapy reports that the ambulation distance was 60 feet. Physical Exam Vital signs: Vital Signs 04/30/18 08:00 04/30/18 12:00 04/30/18 16:00 Temperature 97.5 F L 97.8 F 97.6 F Pulse Rate 93 H 92 H 85 Respiratory Rate 17 16 16 Blood Pressure 109/59 L 125/60 99/50 L Pulse Oximetry 98 97 99 04/30/18 19:28 05/01/18 00:00 05/01/18 04:42 Temperature 97.7 F 97.6 F 98 F Pulse Rate 96 H 78 91 H Respiratory Rate 18 17 18 Blood Pressure 117/58 L 99/55 L 110/57 L Pulse Oximetry 97 95 96 Intake & Output 04/30/18 05/01/18 05/01/18 18:59 06:59 18:59 Intake Total 530 / 530 720 / 720 Balance 530 / 530 720 / 720 Weight 79.4 kg Intake: IV 50 / 50 Ancef 1 GM Premix Inj 1 gm In 50 / 50 50 ml @ 100 mls/hr IV.SIG Q6H SW[facility] Rx#:[id number] Oral 480 / 480 720 / 720 Other: # Voids 1 3 Date of Last Bowel Movement 04/28/18 04/28/18 Narrative: She is resting comfortably, supine in bed. The dressing is dry and intact. There is no erythema nor induration. Her neurovascular status is intact. Results - Labs CBC & Chem 7: 05/01/18 05:42 Laboratory Results - last 24 hr 05/01/18 05:42 Hgb 8.8 L Hct 25.6 L - Procedures Left total hip arthroplasty using [place] prosthesis on 04/29/2018. Assessment and Plan - Ortho Post Op Day # 2 - Assessment and Plan Condition: Good. Orthopedically stable. DVT prophylaxis: TEDs, aspirin, sequentials. Discharge plans: Home with home health care. An appointment was scheduled through the office. Prescriptions: Chelsea 7.5/325; Patient is having significant pain caused by total hip arthroplasty which will last more than 3 days. Trial of Tylenol has not helped. I believe that it is medically necessary to treat patients pain because it is affecting patients ability to participate in postoperative rehabilitation and perform activities of daily living in a comfortable and efficient manner. I have checked the [facility] database prior to completing the prescription.
[2018-05-01] MEDS: Senna/Docusate Sodium 8.6/50 MG Tablet PO SCH (08:29)
[2018-05-01] MEDS: Calcium Carbonate 500 MG Tablet PO SCH (08:29)
[2018-05-01] MEDS: Benzocaine/Menthol 15 MG/3.6 MG SF Lozenge BUCCAL PRN (08:36)
[2018-05-01 13:30] VITALS: BP 129/66; PULSE 104; TEMP 97.6; O2SAT 97
== END 2018-05-01 16:06 | disposition home health service (06) ==
LOC: HSDI 08:04 → N06 14:59
PROVIDERS: ADMIT Orthopaedic Surgery; ATTEND Orthopaedic Surgery

== ENCOUNTER 2018-07-22 07:34 | Inpatient (IN) ==
[2018-07-22] MEDS ORDERED: Sodium Chlor 0.9% Inj 500 ML IV.CONT ONE (08:00)
[2018-07-22] MEDS ORDERED: Chlorhexidine Gluconate 2% 1 Pack (2 Cloths) TOPICAL ONE (08:00)
[2018-07-22] MEDS ORDERED: Chlorhexidine 4% Topical 120 APPLIC/120 ML Bottle TOPICAL SCH (08:00)
[2018-07-22] MEDS ORDERED: Metoprolol Tartrate 25 MG Tablet PO ONE (08:00)
[2018-07-22] MEDS ORDERED: TRANEXAMIC ACID IV.SIG SCH ×2 (09:00→12:00)
[2018-07-22] MEDS ORDERED: SODIUM CHLOR 0.9% IV.SIG SCH ×2 (09:00→12:00)
[2018-07-22] MEDS ORDERED: Sodium Chlor 0.9% Inj 40 ML, Bupivacaine Liposo PF 1.3% Inj 20 ML P-ARTICULR SCH ×2 (09:00)
[2018-07-22] MEDS ORDERED: Famotidine PF Inj 20 MG/2 ML Vial ONE (09:57)
[2018-07-22] MEDS ORDERED: Propofol Inj 500 MG/50 ML Vial ONE (09:57)
[2018-07-22] MEDS ORDERED: ceFAZolin 2 GM Premix Inj 2 GM/50 ML PIGGYBACK IV.SIG ONE (10:07)
[2018-07-22] MEDS ORDERED: Glycopyrrolate Inj 1 MG/5 ML Syringe IV.PUSH ONE (10:17)
[2018-07-22] MEDS ORDERED: Phenylephrine/NS 1000 MCG/10ML Syringe IV.PUSH ONE (10:17)
[2018-07-22] MEDS ORDERED: Lidocaine PF 1% Inj 5 ML Syringe OTHER ONE (10:17)
[2018-07-22] MEDS ORDERED: Acetaminophen 325 MG Tablet PO PRN (12:25)
[2018-07-22] MEDS ORDERED: Post-op Orders (for Pharmacy) OTHER STA (12:25)
[2018-07-22] MEDS ORDERED: Morphine Inj 4 MG/ML Vial IV.PUSH PRN (12:25)
[2018-07-22] MEDS ORDERED: Bisacodyl 10 MG Supp RECTAL PRN (12:25)
[2018-07-22] MEDS ORDERED: Aluminum/Magnesium/Simethacone Susp 30 ML UDC PO PRN (12:25)
--- NOTE | 2018-07-22 12:30 | P.DCO ---
- Physical Therapy Hip: Total hip, Protocol: Right, Posterior hip precautions, Progress to weight bearing Canvas Knee Splint: When in bed with 2 pillows between thighs (For 2 months) Right Lower Extremity Weight Bearing: Weight bearing as tolerated Right Lower Extremity Range of Motion: Active ROM - Nursing Nursing: Dressing changes (Do not remove Dermabond Prineo (the tape that is directly on the wound).Leave the Optifoam dressing in place for 7 days. After this, daily dressing changes will be done taking care to avoid injuring or removing the Dermabond Prineo.) Dressing changes: Other (Do not remove Dermabond Prineo (the tape that is directly on the wound).Leave the Optifoam dressing in place for 7 days. After this, daily dressing changes will be done taking care to avoid injuring or removing the Dermabond Prineo.) - Case Management Consult Case Management Consult-Home Health: Yes - Certification Need for Home Health services: I have seen patient Yuli Laura on 07/22/18. My clinical findings support the need for the requested home health care services because: Need for Home Health Services: Limited ability to care for self, High risk of falls Homebound Certification: I certify that my clinical findings support that this patient is homebound because: Homebound Certification: Post-op weakness, Unsteady gait/balance, Unsafe to leave home unassisted
--- NOTE | 2018-07-22 12:35 | P.OP ---
- Preoperative Diagnosis (1) Primary osteoarthritis of left hip - Postoperative Diagnosis (1) Primary osteoarthritis of left hip Date of procedure: 07/22/18 Procedure: Right total hip arthroplasty using [place] prosthesis. Anesthesia: local (Exparel), spinal Surgeon: Timmy Cat MD Medical Observer: CRISTINA Johnson Estimated blood loss (mL): 150 Pathology: none sent Operation and Findings: Indications and Findings: This 62-year-old woman has had right hip pain for at least the past 15 months. This is worsened progressively over the past 3 months to a greater extent. She has limited weightbearing and is able to ambulate only 10 minutes because of the pain. She has groin pain, difficulty moving her leg difficulty with activities of daily living. She has not responded to conservative measures including analgesics, anti-inflammatory agents, activity modification, intra-articular corticosteroids, ambulatory aids and physical therapy. Physical findings showed limited range of motion in the right hip with tenderness on motion. She had an antalgic gait. Radiographic studies showed significant arthritis in the right hip with loss of articular cartilage to [id number], cyst formation and osteophytes. Operative findings: The right hip had loss of articular cartilage down to bone- on-bone with acetabular and femoral osteophytes. There was subchondral sclerosis. Implants: The acetabular component was a 50 mm Trident II cluster shell with a 36 mm inner diameter, X3 polyethylene, 0 degree liner. The femoral component was an Accolade II size 3 x 132 degrees. The femoral head was Biolox Delta ceramic, 36 mm outer diameter, 0 mm offset. The patient was brought to the clean air operating suite and a spinal anesthetic was administered. The patient was positioned into a lateral position with the operative hip up on a efish [place] lateral positioner. The hip and lower extremity were prepped with alcohol, Hibiclens and ChloraPrep and draped in the usual manner with the hip draped free. Patient received prophylactic antibiotics preoperatively. The patient also received tranexamic acid preoperatively. An appropriate timeout procedure was carried out. An incision was made from the midportion of the greater trochanter proximally and posteriorly paralleling the fibers of the gluteus mike. The incision was deepened through subcutaneous tissues down to the fascia meaghan and gluteus fascia. The gluteus fascia was then split longitudinally in line with its fibers up to the upper portion of the fascia meaghan. With wound towels in place, the Charnley retractor was inserted. The sciatic nerve was identified and protected throughout the procedure. Dissection was then carried down to the interval between the gluteus minimus and the piriformis. A retractor was inserted. The piriformis and obturator conjoined tendon was released from the greater trochanter and reflected off the capsule. A capsulotomy was made longitudinally along the femoral neck to the base of the femoral neck and then curved distally along the posterior aspect of the greater trochanter. The hip was internally rotated. Further release of the external rotators was carried out exposing the hip. The hip was dislocated. The femoral neck was transected at the appropriate level using the oscillating saw placement of appropriate retractors. The femoral head was removed. Preparation of the femur was initiated with a box osteotome followed by a curet to identify the medullary canal. Broaching was then initiated with the size 0 broach and went in 1 size increments up to size 3. The broach handle was removed. The femoral neck was then trimmed with a calcar planar. Attention was then directed to the acetabulum. Soft tissues were debrided from the acetabulum. Retractors were placed about the acetabulum. Reaming was then initiated with the 45 millimeter reamer and went in 1-2 mm increments up to the 50 millimeter diameter reamer. A trial reduction with the 50 millimeter trial prosthesis was carried out. When this was deemed to be appropriate, the trial prosthesis was removed. The acetabulum was irrigated and cleaned. The actual prosthesis as noted above was impacted into place and seated appropriately. Drill holes were made and sounded. Appropriate sized screws were inserted to stabilize the acetabulum further. The liner as noted above was inserted into the acetabular shell and impacted into place. Osteophytes were trimmed from the acetabulum. Local anesthetic was administered throughout the area of the acetabulum and anterior aspect of the femur. The trial neck was placed on the broach for the above-noted prosthesis. The femoral head trial was placed onto the femoral neck . A trial reduction was carried out. Adjustment was made as needed. The stability, leg length and motion were excellent. There was no pistoning. The trial prosthesis was removed. The broach was removed. The femoral component was impacted into the medullary canal of the femur after irrigation and suctioning. When this was appropriately seated a trial reduction was again carried out with the trial prosthesis. There was no pistoning. The leg length was appropriate. The stability and motion were excellent. The trial prosthesis was then removed. After cleaning and drying the trunion of the femoral component, the above-noted femoral head was impacted onto the trunnion. The hip was reduced. The stability and mobility were again checked along with leg lengths as noted above. The hip was positioned appropriately and closure commenced after the remainder of the local anesthetic was injected throughout the hip. The external rotators and capsule were repaired with #1 Vicryl interrupted transosseous sutures with a Krakw technique to reattach the external rotators and capsule to the posterior aspect of the greater trochanter. The capsule itself on the superior aspect was closed with #1 Vicryl interrupted [id number] sutures. The sciatic nerve was inspected. The fascia meaghan and gluteus fascia were repaired with #1 Vicryl interrupted [id number] sutures along with a barbed suture. The subcutaneous tissues were closed with 2-0 Vicryl interrupted simple sutures with buried knots. The skin was closed with a continuous subcuticular closure of 4-0 Monocryl. The wound was then approximated with Dermabond Prineo. A silver impregnated dressing was applied to the hip. A knee immobilizer was applied to the leg. The patient was transferred from the operating room to the recovery room in satisfactory condition having tolerated the procedure well. Counts are correct. Specimens: None. Estimated blood loss: 150 mL
[2018-07-22] MEDS ORDERED: *morphine SULFATE 10 MG/ML PERIprocedure ONLY ONE ×3 (13:11→14:00)
[2018-07-22] MEDS: Ketorolac Inj 30 MG/ML (IVP) Vial IV.PUSH SCH ×2 (13:20→18:30)
--- NOTE | 2018-07-22 13:44 | XR ---
EXAM DATE: 07/22/2018 1:41 PM EST AGE/SEX: 62 years / Female INDICATIONS: Post op right hip surgery. CLINICAL DATA: This is the patient's initial encounter. Patient reports that signs and symptoms have been present for 1 day and indicates a pain score of 0/10. MEDICAL/SURGICAL HISTORY: None. . left hip surgery 2017 COMPARISON: POI, XR HIP AP AND LAT, RIGHT, 06/06/2018. . FINDINGS: 3 views submitted for interpretation. There is a new right hip arthroplasty in good position. There i s no acute fracture. No lytic or blastic lesions identified. There is no visible complication. CONCLUSION: Right hip arthroplasty in good position Electronically signed by: Grzegorz Torrez MD Board Certified Radiologist 07/22/2018 1:43 PM EST
[2018-07-22] MEDS ORDERED: SODIUM CHLOR 0.9% IV.SIG ONE (14:00)
[2018-07-22] MEDS ORDERED: TRANEXAMIC ACID IV.SIG ONE (14:00)
[2018-07-22] MEDS ORDERED: *HYDROmorphone PF Inj 1 MG/ML Ampul PERIprocedural Use ONLY ONE (14:46)
[2018-07-22] MEDS ORDERED: *Ondansetron Inj 4 MG/2 ML Vial PERIprocedural Use ONLY ONE (15:12)
[2018-07-22] MEDS ORDERED: *Promethazine Inj 25 MG/ML Vial PERIprocedural use ONLY ONE (15:34)
[2018-07-22] MEDS: Pantoprazole Sodium 20 MG DR Tablet PO SCH (15:43)
[2018-07-22] MEDS: ceFAZolin Inj 1 GM in Sodium Chlor 0.9% Inj 100 ML IV.SIG SCH ×2 (15:59→21:20)
[2018-07-22] MEDS ORDERED: Non-Formulary Drug (Glucosamine-Chondroitin [Glucosamine-Chondroitin] 1 CAP) PO SCH (21:00)
[2018-07-22] MEDS ORDERED: DOXYLAMINE SUCCINATE 25 MG PO SCH (21:00)
[2018-07-22] MEDS ORDERED: Benzocaine/Menthol 15 MG/3.6 MG SF Lozenge BUCCAL PRN (21:01)
[2018-07-22] MEDS: Senna/Docusate Sodium 8.6/50 MG Tablet PO SCH (21:18)
[2018-07-23] MEDS: Ketorolac Inj 30 MG/ML (IVP) Vial IV.PUSH SCH ×3 (01:23→12:29)
[2018-07-23] MEDS: ceFAZolin Inj 1 GM in Sodium Chlor 0.9% Inj 100 ML IV.SIG SCH (04:15)
[2018-07-23 06:18] LABS: Hematocrit 31.8 % (35.0-46.0); Hemoglobin 10.8 gm/dL (11.6-15.3)
--- NOTE | 2018-07-23 07:32 | P.PNOP ---
Subjective Interval history: Postop day #1 He is doing well. She has minimal complaints related to her hip at this time. She has questions about the procedure. She has questions about the opposite hip. Physical therapy reports that the ambulation distance was 40 feet. Physical Exam Vital signs: Vital Signs 07/22/18 08:10 07/22/18 12:49 07/22/18 13:00 Temperature 98.2 F 94.6 F L Pulse Rate 91 H 78 76 Respiratory Rate 16 22 24 Blood Pressure 147/88 H 107/63 108/65 Pulse Oximetry 99 100 100 07/22/18 13:15 07/22/18 13:30 07/22/18 13:45 Temperature Pulse Rate 69 68 68 Respiratory Rate 16 24 16 Blood Pressure 100/60 91/51 L 102/58 L Pulse Oximetry 100 100 98 07/22/18 14:00 07/22/18 14:15 07/22/18 14:30 Temperature 94.6 F L Pulse Rate 75 67 81 Respiratory Rate 16 12 19 Blood Pressure 111/64 116/65 107/63 Pulse Oximetry 98 90 L 100 07/22/18 14:45 07/22/18 15:00 07/22/18 15:15 Temperature 97.3 F L Pulse Rate 83 75 85 Respiratory Rate 17 16 20 Blood Pressure 109/66 120/59 L 112/56 L Pulse Oximetry 100 100 99 07/22/18 15:30 07/22/18 15:45 07/22/18 16:00 Temperature 97.5 F L Pulse Rate 80 80 Respiratory Rate 22 12 Blood Pressure 104/51 L 108/57 L Pulse Oximetry 99 99 99 07/22/18 17:00 07/22/18 19:35 07/23/18 01:15 Temperature 97.5 F L 97.7 F Pulse Rate 98 H 79 98 H Respiratory Rate 22 18 18 Blood Pressure 108/57 L 124/64 120/59 L Pulse Oximetry 99 98 97 07/23/18 03:30 07/23/18 03:43 Temperature 97.7 F Pulse Rate 94 H Respiratory Rate 16 17 Blood Pressure 102/58 L Pulse Oximetry 95 Intake & Output 07/22/18 07/23/18 07/23/18 18:59 06:59 18:59 Intake Total 2497.3 / 2497.3 1580 / 1580 Output Total 300 / 300 Balance 2197.3 / 2197.3 1580 / 1580 Weight 73 kg 83.6 kg Intake: IV 1257.3 / 1257.3 1100 / 1100 LR 1000 mL Inj 1,000 ML @ 80 1000 / 1000 1000 / 1000 mls/hr IV.CONT .[id number] SWAPNA Rx# :[id number] Cyklokapron Inj 730 MG In NS 107.3 / 107.3 Inj 100 ML @ 200 mls/hr IV.SIG ONCE SWAPNA Rx#:[id number] Ancef 2 GM Premix Inj 2 gm In 50 / 50 50 ml @ 0 mls/hr IV.SIG .STK- MED ONE Rx#:[id number] Ancef Inj 1 GM In NS Inj 100 ML 100 / 100 100 / 100 @ 200 mls/hr IV.SIG Q6H SWAPNA Rx #:[id number] Oral 240 / 240 480 / 480 Anesthesia Amount 1000 / 1000 Output: Emesis 150 / 150 Estimated Blood Loss 150 / 150 Other: # Voids 2 Date of Last Bowel Movement 07/22/18 # Bowel Movements 0 Weight On Admission 73 kg Narrative: She is resting comfortably, supine in bed. The dressing is dry and intact. Her neurovascular status is intact. She is able to very minimally straight leg raise with some discomfort. Results - Labs CBC & Chem 7: 07/23/18 05:50 Laboratory Results - last 24 hr 07/22/18 07/23/18 08:10 05:50 Hgb 10.8 L Hct 31.8 L Blood Type A Negative Antibody Screen Negative - Imaging Impressions Hip X-Ray 07/22/18 12:23 CONCLUSION: Right hip arthroplasty in good position - Procedures Right total hip arthroplasty using [place] prosthesis on 07/22/2018. Assessment and Plan - Ortho Post Op Day # 1 - Problem List (1) Status post total replacement of left hip Code(s): Z96.642 - Presence of left artificial hip joint Status: Chronic Onset Date: ~04/29/18 (2) Status post total replacement of right hip Code(s): Z96.641 - Presence of right artificial hip joint Status: Acute Onset Date: 07/22/18 Plan: Continue postop care and PT. we have discussed her surgery. We have discussed activity limitations to this hip. We have discussed both hips in relation to each other. (3) Primary osteoarthritis of left hip Code(s): M16.12 - Unilateral primary osteoarthritis, left hip Status: Chronic - Assessment and Plan Condition: Good. Orthopedically stable. DVT prophylaxis: TEDs, aspirin, sequentials. Discharge plans: Home with home health care. An appointment was scheduled through the office. Prescriptions: [place] 7.5/325; Patient is having significant pain caused by a total hip arthroplasty which will last more than 3 days. Trial of Tylenol has not helped. I believe that it is medically necessary to treat patients pain because it is affecting patients ability to participate in postoperative rehabilitation and perform activities of daily living in a comfortable and efficient manner. I have checked the [employer] database prior to completing the prescription.
--- NOTE | 2018-07-23 08:02 | P.DS ---
Date of admission: 07/22/18 07:34 Primary care physician: Rowdy Fitzgerald DO Attending physician on discharge: Timmy Cat Anticipated date of discharge: 07/23/18 Brief History from admission: This 62-year-old woman has had long-standing left hip pain nonresponsive to conservative measures including anti-inflammatory agents, analgesics, activity modification and ambulatory aids. These are detailed in the history and physical examination. This has limited her activities of daily living to a significant extent, causing difficulty with standing from a seated position, difficulty walking and the like. Physical findings showed limited range of motion in the right hip with tenderness on motion. She had an antalgic gait. Radiographic findings showed loss of articular cartilage to [id number], femoral osteophytes and acetabular osteophytes as well as subchondral sclerosis. DS: Diagnosis - Discharge Diagnosis (1) Status post total replacement of left hip Status: Chronic Diagnosis: Secondary (2) Status post total replacement of right hip Status: Acute Diagnosis: Principal (3) Primary osteoarthritis of left hip Status: Chronic Diagnosis: Principal DS: Medications - Discharge Medications Prescriptions: hydrocodone-acetaminophen 1 tab PO Q4H PRN 7 Days #42 tab PRN Reason: Pain DS: Summary Hospital Course: The patient was admitted as noted above. The above noted operative procedure was carried out that day. Preoperatively prophylactic antibiotics were administered Ancef according to protocol. These were continued postoperatively. The patient also received tranexamic acid to help with hemostasis according to protocol. In the postanesthesia care unit mechanical methods of DVT prophylaxis in the form of TERESO stockings and sequentials were initiated. Physical therapy was initiated on the day of surgery. On postoperative day #1 physical therapy continued. DVT prophylaxis with aspirin 81 mg twice daily was initiated at this time. The patient continued physical therapy throughout the hospitalization. The distance walked and range of motion improved throughout the hospitalization. The patient was discharged on postoperative day 1 with the disposition being to home with home health care. An appointment for follow-up was made prior to admission. - Time Spent with Patient Total time spent providing and/or coordinating discharge services: Less than 30 minutes - Quality: VTE Deep Vein Thrombosis/Pulmonary Embolism Present on Admission: No Exam Vital signs: Vital Signs 07/22/18 08:10 07/22/18 12:49 07/22/18 13:00 Temperature 98.2 F 94.6 F L Pulse Rate 91 H 78 76 Respiratory Rate 16 22 24 Blood Pressure 147/88 H 107/63 108/65 Pulse Oximetry 99 100 100 07/22/18 13:15 07/22/18 13:30 07/22/18 13:45 Temperature Pulse Rate 69 68 68 Respiratory Rate 16 24 16 Blood Pressure 100/60 91/51 L 102/58 L Pulse Oximetry 100 100 98 07/22/18 14:00 07/22/18 14:15 07/22/18 14:30 Temperature 94.6 F L Pulse Rate 75 67 81 Respiratory Rate 16 12 19 Blood Pressure 111/64 116/65 107/63 Pulse Oximetry 98 90 L 100 07/22/18 14:45 07/22/18 15:00 07/22/18 15:15 Temperature 97.3 F L Pulse Rate 83 75 85 Respiratory Rate 17 16 20 Blood Pressure 109/66 120/59 L 112/56 L Pulse Oximetry 100 100 99 07/22/18 15:30 07/22/18 15:45 07/22/18 16:00 Temperature 97.5 F L Pulse Rate 80 80 Respiratory Rate 22 12 Blood Pressure 104/51 L 108/57 L Pulse Oximetry 99 99 99 07/22/18 17:00 07/22/18 19:35 07/23/18 01:15 Temperature 97.5 F L 97.7 F Pulse Rate 98 H 79 98 H Respiratory Rate 22 18 18 Blood Pressure 108/57 L 124/64 120/59 L Pulse Oximetry 99 98 97 07/23/18 03:30 07/23/18 03:43 Temperature 97.7 F Pulse Rate 94 H Respiratory Rate 16 17 Blood Pressure 102/58 L Pulse Oximetry 95 Intake & Output 07/22/18 07/23/18 07/23/18 18:59 06:59 18:59 Intake Total 2497.3 / 2497.3 1580 / 1580 Output Total 300 / 300 Balance 2197.3 / 2197.3 1580 / 1580 Weight 73 kg 83.6 kg Intake: IV 1257.3 / 1257.3 1100 / 1100 LR 1000 mL Inj 1,000 ML @ 80 1000 / 1000 1000 / 1000 mls/hr IV.CONT .[id number] SWAPNA Rx# :[id number] Cyklokapron Inj 730 MG In NS 107.3 / 107.3 Inj 100 ML @ 200 mls/hr IV.SIG ONCE SWAPNA Rx#:[id number] Ancef 2 GM Premix Inj 2 gm In 50 / 50 50 ml @ 0 mls/hr IV.SIG .STK- MED ONE Rx#:[id number] Ancef Inj 1 GM In NS Inj 100 ML 100 / 100 100 / 100 @ 200 mls/hr IV.SIG Q6H SWAPNA Rx #:[id number] Oral 240 / 240 480 / 480 Anesthesia Amount 1000 / 1000 Output: Emesis 150 / 150 Estimated Blood Loss 150 / 150 Other: # Voids 2 Date of Last Bowel Movement 07/22/18 # Bowel Movements 0 Weight On Admission 73 kg Narrative: She is resting comfortably, supine in bed. The dressing is dry and intact. Her neurovascular status is intact. She is able to very minimally straight leg raise with some discomfort. Results Procedures completed during hospitalization: Right total hip arthroplasty using [place] prosthesis on 07/22/2018. Labs on day of discharge: Labs from last 24 hours 07/23/18 07/22/18 05:50 08:10 Hgb 10.8 L Hct 31.8 L Blood Type A Negative Antibody Screen Negative - Impressions ITS Impressions Hip X-Ray 07/22/18 12:23 CONCLUSION: Right hip arthroplasty in good position Discharge Plan - Discharge Disposition Patient Disposition: Disch W/Home Health Service - Discharge Condition Condition: Stable - Discharge Order Discharge Orders: Discharge Order (Routine); Ordered 07/23/18 Ordered By: Timmy Cat - Discharge Details Anticipated Discharge Date: 07/23/18 - Physicians Team Primary Care Provider: Rowdy Fitzgerald Attending Provider: Timmy Cat Other Providers: Eveline Crawford MD ; [facility] - Rxs /Orders / Referrals /Forms Prescriptions: New hydrocodone-acetaminophen 7.5-325 mg Tablet 1 tab PO Q4H PRN (Reason: Pain) 7 Days Qty: 42 RF: 0 Continue acetaminophen [Acetaminophen Extra Strength] 500 mg Tablet 1,000 mg PO Q6H PRN (Reason: Pain) Bifidobacterium infantis [Align] 10.5 mg (10 million cell) Tablet,Chewable 1 cap PO DAILY calcium carbonate [Calcium 600] 600 mg calcium (1,500 mg) Tablet 600 mg PO DAILY doxylamine succinate [Sleep Aid (doxylamine)] 25 mg Tablet 25 mg PO HS glucosamine-chondroitin 500-400 mg Capsule 1 cap PO BID multivit,Ca,xxgo-PP-hlbupq-lut [Complete Multi] [phone] mg-mcg-mcg- mcg Tablet 1 tab PO DAILY naproxen sodium [Aleve] 220 mg Capsule 220 mg PO BID PRN (Reason: Pain) omeprazole magnesium [Prilosec OTC] 20 mg Tablet,Delayed Release (Dr/Ec) 20 mg PO DAILY PRN (Reason: gerd) Discontinued hydrocodone-acetaminophen [[place]] 5-325 mg Tablet 1 tab PO Q4-6H PRN (Reason: Pain) Referrals: Timmy Cat MD [Physician] - See Instructions Rowdy Fitzgerald DO [Primary Care Provider] - See Instructions - Discharge Instructions Patient Printed Instructions: How to Use an Incentive Spirometer (DC), How to Choose and Use a Walker (GEN), Fall Prevention (DC), TERESO Hose (DC), Knee Immobilizer (DC), Total Hip Replacement (DC) Additional Instructions: Follow up with Dr Cat as instructed, call the office if you need to reschedule. Keep your dressing clean and dry, if it becomes saturated then it may be changed Continue to wear your [place] Stocking for the next 4-6 weeks. you may remove them during the day and reapply them at night to wear while you are sleeping. Continue to use your incentiive spirometer every hour while at home, this will help improve your lung function. Good luck in your recovery, it has been a pleasure taking care of you. - Post Discharge Care Plan Care Plan Goals: Discharge Care Plan Goals for Total Hip Replacement You had a hip replacement surgery. This means your natural hip was replaced with an artificial joint (prosthesis). You may be recovering at home or in a rehabilitation facility. Either way, you must take care of your new hip. Here are some goals to help you heal well. Directions to Meet your Goals: 1. Activity & Exercises: * Take pain medicine as directed by your doctor. * Dont drive until your doctor says its OK. And never drive while taking opioid pain medicine. * Wear the support stockings you were given in the hospital as directed by your surgeon. * Dont sit for more than 30 to 45 minutes at one time. * Dont lean forward while sitting. * Dont cross your legs. * Keep your feet flat on the floor. Dont turn your foot or leg inward. This stresses your hip joint. * Use an elevated toilet seat for 6 weeks after surgery. * Nap if you are tired, but dont stay in bed all day. * Sit on a firm cushion when you ride in a car and avoid sitting too low. Try not to bend your hip too much when getting in and out of the car. 2. Prevent Falls/Injury: * Follow your doctors orders regarding how much weight to put on the affected leg. * Dont bend at the hip when you bend over. Don't bend at the waist to put on socks and shoes. And avoid picking up items from the floor. * Use a cane, crutches, a walker, or handrails until your balance, flexibility, and strength improve. And remember to ask for help from others when you need it. * Free up your hands so that you can use them to keep balance. Use a urmila pack , apron, or pockets to carry things. * Arrange your household to keep the items you need handy. Keep everything else out of the way. * Remove items that may cause you to fall, such as throw rugs and electrical cords. * Use nonslip bath mats, grab bars, an elevated toilet seat, and a shower chair in your bathroom * Sit on a shower stool or chair when you shower to keep from falling. 3. Precautions: * Prevent infection. Any infection will need to be treated immediately. Call your doctor right away if you think you might have an infection. * Tell your dentist that you have an artificial joint and take antibiotics as prescribed before any dental work. * Tell all your healthcare providers about your artificial joint before any medical procedure. * Maintain a healthy weight. Get help to lose any extra pounds. Added body weight puts stress on the joints. 4. Incision Care: * Prevent infection by washing your hands often. If an infection occurs, it will need to be treated right away. * Call your doctor right away if you think you may have an infection. Symptoms include a fever or an incision that leaks white, green, or yellow fluid. * Don't soak your incision in water until your doctor says its OK. This means no hot tubs, bathtubs, or swimming pools. * Follow your doctor's instructions for changing the dressing. * Dont rub the incision, or apply creams or lotions to it. * If you notice any redness or drainage around the bandage site, contact your surgeon's office immediately. 5. Follow-Up: Do Not miss your follow-up appointment. Keep up with all your appointments and yearly check ups When to call your doctor: Call your doctor right away if you have: Hip pain gets worse Pain or swelling in your calf or leg not related to your incision Tenderness or redness in your calf Fever of 100.4F (38C) or higher, or as directed by your healthcare provider Shaking chills Swelling or redness at the incision site gets worse Fluid draining from the incision Call 911: Call 911 right away if you have: Chest pain Shortness of breath Any pain or tenderness in your calf
[2018-07-23] MEDS: Senna/Docusate Sodium 8.6/50 MG Tablet PO SCH (08:56)
[2018-07-23] MEDS: Pantoprazole Sodium 20 MG DR Tablet PO SCH (08:56)
[2018-07-23] MEDS ORDERED: BIFIDOBACTERIUM INFANTIS PO SCH (09:00)
[2018-07-23] MEDS ORDERED: Calcium Carbonate 500 MG Tablet PO SCH (09:00)
[2018-07-23] MEDS ORDERED: Multivit/Folic Acid/Minerals Chewable Tablets PO SCH (09:00)
[2018-07-23 09:09] VITALS: BP 117/56; PULSE 75; RESP 20; TEMP 97.5; O2SAT 96
--- NOTE | 2018-07-23 09:52 | P.CONIM ---
History of Present Illness Service: [facility] hospitalist Consult date: 07/23/18 Requesting Physician: Timmy Cat Reason for Consult: Assist with ongoing medical management Primary Care Provider: Rowdy Fitzgerald DO Chief Complaint: Righ hip pain History of Present Illness: This is 62-year-old female with past medical history significant for previous C diff infection 2015, diet controlled diabetes , GERD and osteoarthritis of bilateral hips who underwent an elective left total hip replacement April 2018 who has tried and failed numerous attempts at conservative therapy in regards to ongoing right hip pain and underwent elective right total hip replacement performed by Dr. Cat on 07/22/18. Hospitalist services have been consulted to assist with ongoing medical management. Patient seen and examined. She reports right hip pain 5 out of 10. Patient reports issues with postoperative pain as well as persistent nausea and vomiting following her previous hip replacement surgery in April. She says she was able to eat breakfast this morning without any difficulties. She denies any nausea or vomiting present. She denies any fever or chills. She denies any chest pain, shortness of breath or abdominal pain. She denies any urinary difficulties. She has not had a bowel movement reports she is passing flatus. Review of Systems Review of Systems: all other systems reviewed are negative PMFSH Medical History Medical History Arthritis (Acute) Borderline diabetes (Acute) H/O Clostridium difficile infection (Acute) Hiatal hernia (Acute) History of anesthesia reaction (Acute) Surgical History Surgical History H/O abdominoplasty (Acute) H/O inguinal hernia repair (Acute) History of arthroplasty of left hip (Acute) History of bunionectomy (Acute) Family History Family History Father Heart disease Mother Diabetes Social History Social History Substance History: No History of Abuse Second Hand Smoke Exposure: No Smoking Status: Never smoker How Often Do You Have a Drink Containing Alcohol: Monthly or less Recent Travel in [facility] within the Last 8 Weeks: No Recent Out of Country Travel within the Last 8 Weeks: No Immunization History Tetanus Immunization: Unsure Hx Influenza Vaccine This Season: Yes Medications and Allergies Allergies Allergy/AdvReac Type Severity Reaction Status Date / Time amoxicillin Allergy Severe Hives Verified 07/22/18 07:57 clindamycin AdvReac Severe develops Verified 07/22/18 07:57 C-DIFF Home Medications Medication Instructions Recorded Confirmed Type Bifidobacterium infantis [Align] 1 cap PO DAILY 04/14/18 07/22/18 History acetaminophen [Acetaminophen Extra 1,000 mg PO Q6H PRN 04/14/18 07/22/18 History Strength] calcium carbonate [Calcium 600] 600 mg PO DAILY 04/14/18 07/22/18 History doxylamine succinate [Sleep Aid 25 mg PO HS 04/14/18 07/22/18 History (doxylamine)] multivit,Ca,weem-XU-[id number]-lut 1 tab PO DAILY 04/14/18 07/22/18 History [Complete Multi] naproxen sodium [Aleve] 220 mg PO BID PRN 04/14/18 07/22/18 History omeprazole magnesium [Prilosec OTC] 20 mg PO DAILY PRN 04/14/18 07/22/18 History glucosamine-chondroitin 1 cap PO BID 07/10/18 07/22/18 History Active Medications: Active Medications Acetaminophen (Tylenol) 650 mg PO Q6H PRN PRN Reason: Pain Less Than 3 On Scale Hydrocodone Bitart/Acetaminophen ([place] 7.5/325) 1 tab PO Q4H PRN PRN Reason: PAIN SCALE 4 TO 6 MODERATE Last Admin: 07/23/18 05:58 Dose: 1 tab Hydrocodone Bitart/Acetaminophen ([place] 7.5/325) 2 tab PO Q6H PRN PRN Reason: PAIN SCALE 7 TO 10 SEVERE Al Hydrox/Mg Hydrox/Simethicone (Mag-Al Plus Susp Liq) 30 ml PO Q6H PRN PRN Reason: INDIGESTION Al Hydroxide/Mg Hydroxide (Milk Of Magnesia Liq) 30 ml PO BID PRN PRN Reason: Mild Constipation Aspirin (Aspirin Chew) 81 mg PO BID SWAPNA Last Admin: 07/23/18 08:56 Dose: 81 mg Benzocaine/Menthol (Cepacol Max Strength) 1 lozenge BUCCAL Q2H PRN PRN Reason: SORE THROAT Last Admin: 07/23/18 05:58 Dose: 1 lozenge Bisacodyl (Dulcolax Supp) 10 mg RECTAL DAILY PRN PRN Reason: SEVERE CONSIPN PO INTOLERABLE Calcium Carbonate (Oscal) 500 mg PO DAILY FOR[facility], [facility] Last Admin: 07/23/18 08:56 Dose: 500 mg Chlorhexidine Gluconate (Hibiclens 4% Topical) 1 applicatio TOPICAL ONCE [facility], [facility]1983 Stop: 07/26/18 07:59 Last Admin: 07/22/18 08:26 Dose: 1 applicatio Diphenhydramine HCl (Benadryl) 25 mg PO Q6H PRN PRN Reason: ITCHING Lactated Ringer's (Lr 1000 Ml Inj) 1,000 mls @ 80 mls/hr IV.CONT .[id number] [facility], [facility] Last Admin: 07/23/18 05:48 Dose: 80 mls/hr Ketorolac Tromethamine (Toradol Inj) 15 mg IV.PUSH Q6H [facility], [facility] Stop: 07/24/18 06:31 Last Admin: 07/23/18 05:58 Dose: 15 mg Lactulose (Lactulose Liq) 30 ml PO DAILY PRN PRN Reason: SEVERE CONSITIPATION Miscellaneous Information (Misc Nursing Information) 0 each OTHER UNSCH PRN PRN Reason: SEE LABEL COMMENTS Stop: 07/23/18 12:48 Morphine Sulfate (Morphine Inj) 2 mg IV.PUSH Q3H PRN PRN Reason: BREAKTHROUGH PAIN Multivitamins/Folic Acid/Vitamin C (Flintstones) 1 tab PO DAILY [facility] Last Admin: 07/23/18 08:56 Dose: 1 tab Ondansetron HCl (Zofran Odt) 4 mg PO Q6H PRN PRN Reason: NAUSEA OR VOMITING Pantoprazole Sodium (Protonix) 20 mg PO DAILY [facility] Last Admin: 07/23/18 08:56 Dose: 20 mg Senna/Docusate Sodium (Merlene-Colace) 1 tab PO BID [facility] Last Admin: 07/23/18 08:56 Dose: 1 tab Sennosides (Senokot) 17.2 mg PO BID PRN PRN Reason: Moderate Constipation Sodium Chloride (Ns Flush) 2 ml IV.FLUSH PRN PRN PRN Reason: FLUSH AFTER USING IV ACCESS Sodium Chloride (Ns Flush) 2 ml IV.FLUSH BID [facility] Last Admin: 07/23/18 08:57 Dose: 2 ml Physical Exam Vital signs: Vital Signs 07/22/18 12:49 07/22/18 13:00 07/22/18 13:15 Temperature 94.6 F L Pulse Rate 78 76 69 Respiratory Rate 22 24 16 Blood Pressure 107/63 108/65 100/60 Pulse Oximetry 100 100 100 07/22/18 13:30 07/22/18 13:45 07/22/18 14:00 Temperature 94.6 F L Pulse Rate 68 68 75 Respiratory Rate 24 16 16 Blood Pressure 91/51 L 102/58 L 111/64 Pulse Oximetry 100 98 98 07/22/18 14:15 07/22/18 14:30 07/22/18 14:45 Temperature 97.3 F L Pulse Rate 67 81 83 Respiratory Rate 12 19 17 Blood Pressure 116/65 107/63 109/66 Pulse Oximetry 90 L 100 100 07/22/18 15:00 07/22/18 15:15 07/22/18 15:30 Temperature Pulse Rate 75 85 80 Respiratory Rate 16 20 22 Blood Pressure 120/59 L 112/56 L 104/51 L Pulse Oximetry 100 99 99 07/22/18 15:45 07/22/18 16:00 07/22/18 17:00 Temperature 97.5 F L Pulse Rate 80 98 H Respiratory Rate 12 22 Blood Pressure 108/57 L 108/57 L Pulse Oximetry 99 99 99 07/22/18 19:35 07/23/18 01:15 07/23/18 03:30 Temperature 97.5 F L 97.7 F Pulse Rate 79 98 H Respiratory Rate 18 18 16 Blood Pressure 124/64 120/59 L Pulse Oximetry 98 97 07/23/18 03:43 07/23/18 08:00 Temperature 97.7 F 97.5 F L Pulse Rate 94 H 75 Respiratory Rate 17 20 Blood Pressure 102/58 L 117/56 L Pulse Oximetry 95 96 Intake & Output 07/22/18 07/23/18 07/23/18 18:59 06:59 18:59 Intake Total 2497.3 / 2497.3 1680 / 1680 Output Total 300 / 300 Balance 2197.3 / 2197.3 1680 / 1680 Weight 73 kg 83.6 kg Intake: IV 1257.3 / 1257.3 1200 / 1200 LR 1000 mL Inj 1,000 ML @ 80 1000 / 1000 1000 / 1000 mls/hr IV.CONT .[id number] [facility], [facility] Rx# :[id number] Cyklokapron Inj 730 MG In NS 107.3 / 107.3 Inj 100 ML @ 200 mls/hr IV.SIG ONCE [facility], [facility] Rx#:[id number] Ancef 2 GM Premix Inj 2 gm In 50 / 50 50 ml @ 0 mls/hr IV.SIG .STK- MED ONE Rx#:[id number] Ancef Inj 1 GM In NS Inj 100 ML 100 / 100 200 / 200 @ 200 mls/hr IV.SIG Q6H [facility], [facility] Rx #:[id number] Oral 240 / 240 480 / 480 Anesthesia Amount 1000 / 1000 Output: Emesis 150 / 150 Estimated Blood Loss 150 / 150 Other: # Voids 2 Date of Last Bowel Movement 07/22/18 # Bowel Movements 0 Weight On Admission 73 kg Narrative: GENERAL: WDWN female patient, INAD. Awake and alert. Appears comfortable sitting up in bed watching TV. SKIN: Warm and dry. No generalized rash. HEAD: Atraumatic. Normocephalic. EYES: Pupils equal and round. No scleral icterus. No injection or drainage. ENT: No nasal bleeding or discharge. Mucous membranes pink and moist. NECK: Trachea midline. CARDIOVASCULAR: Regular rate and rhythm. No murmur appreciated. RESPIRATORY: No accessory muscle use. Clear to auscultation. Breath sounds equal bilaterally. GASTROINTESTINAL: Abdomen soft, non-tender, nondistended. +BS x 4 quads. MUSCULOSKELETAL: Extremities without clubbing, cyanosis, or edema. s/p right OZ , incision covered with postop dressing, C/D/I. RLE NV intact distally. NEUROLOGICAL: Awake and alert. No obvious cranial nerve deficits. Motor grossly within normal limits. Able to move all extremities spontaneously. Normal speech. PSYCHIATRIC: Appropriate mood and affect; insight and judgment normal. Results Labs CBC & Chem 7: 07/23/18 05:50 Imaging Impressions Hip X-Ray 07/22/18 12:23 CONCLUSION: Right hip arthroplasty in good position ABG Impressions Hip X-Ray 07/22/18 12:23 CONCLUSION: Right hip arthroplasty in good position Assessment and Plan (1) Status post total replacement of left hip: Code(s): Z96.642 - Presence of left artificial hip joint Status: Chronic Onset Date: ~04/29/18 (2) Status post total replacement of right hip: Code(s): Z96.641 - Presence of right artificial hip joint Status: Acute Onset Date: 07/22/18 (3) Primary osteoarthritis of left hip: Code(s): M16.12 - Unilateral primary osteoarthritis, left hip Status: Chronic Plan 62-year-old female past medical history significant for osteoarthritis status post elective right total hip replacement performed by Dr. Cat. Hospitalist service is consulted to assist with ongoing medical management: Osteoarthritis right hip, tried and failed numerous attempts at conservative therapy, status post elective right total hip arthroplasty performed by Dr. Cat 07/22/18 -Management per orthopedic service -Pain medication with bowel regimen -Maintain hip precautions -PT GERD hx of N/V postoperatively following elective Left OZ 05/13 -Patient is able to tolerate breakfast without any complications -Continue on PPI -Zofran PRN Borderline diabetes, diet controlled -previous fasting glucose 86 07/10/18 -Resume outpatient follow-up with PCP following discharge Anemia, postoperative anemia acute blood loss -Hemoglobin dropped 13.9-10.8 -No evidence of active bleeding, continue to monitor -Monitor CBC as indicated Hx of Cdiff 2015 -Patient denies any complaints of diarrhea -Monitor -Advised patient on association with PPI and C. difficile DVT prophylaxis -Aspirin 81 mg twice daily per Ortho service You very kindly for this consultation. We will continue to follow patient along with you. Code Status: FULL Discussed Condition With: Patient, nursing staff, Dr. Crawford Attending Attestation The exam, history, and the medical decision-making described in the above note were completed with the assistance of the mid-level provider. I reviewed and agree with the findings presented. I attest that I had a [id number] encounter with the patient on the same day, and personally performed and documented my assessment and findings in the medical record. Patient seen and examined. She reports she is feeling well today. Pain is controlled. We reviewed her medical conditions. On exam: Normal s1, s2. No murmurs. lungs CTA tiffanie. Post op right hip dressing is clean and dry A/P: Patient failed standard therapy, admitted for right hip arthroplasty. Doing well post op. We discussed the need to adhere to a diabetic diet. She is progressing well.
== END 2018-07-23 15:05 | disposition home health service (06) | DRG 470 ==
LOC: HSDI 07:34 → N06 17:33
PROVIDERS: ADMIT Orthopaedic Surgery; ATTEND Orthopaedic Surgery
DX: Z83.3 Family history of diabetes mellitus; Z96.642 Presence of left artificial hip joint; R73.03 Prediabetes; K21.9 Gastro-esophageal reflux disease without esophagitis; Z82.49 Family history of ischemic heart disease and other diseases of the circulatory system; M16.11 Unilateral primary osteoarthritis, right hip; Z86.19 Personal history of other infectious and parasitic diseases; Z88.1 Allergy status to other antibiotic agents; Z88.0 Allergy status to penicillin; D62 Acute posthemorrhagic anemia; R53.1 Weakness; R26.81 Unsteadiness on feet
CPT/HCPCS: 73502; 85014; 85018; 86850; 86900; 86901; 94150; 97110; 97116; 97150; 97162; 97166; C1776; C9290; J0131; J0690; J1100; J1170; J1580; J1885; J2250; J2270; J2370; J2405; J2550; J2704; J2765; J7120; L1830